=== PATIENT | male | born 1960 | race Caucasian/White ===

== ENCOUNTER → 2016-07-21 | Outpatient (CLI) | payer OTHER ==
[2016-07-21 10:53] LABS: BUN/CREATININE RATIO 21 (0-10)
== END ==
LOC: LAB 09:33
PROVIDERS: Internal Medicine Endocrinology, Diabetes & Metabolism
DX: E11.29 Type 2 diabetes mellitus with other diabetic kidney complication (principal); E78.00 Pure hypercholesterolemia, unspecified
CPT/HCPCS: 80053; 80061; 82043; 82570; 83036; 83735

== ENCOUNTER 2016-07-26 08:31 | Emergency (ER) | payer SELFPAY | END 2016-07-26 10:45 | disposition home or self-care (01) | LOC: ER1 08:31 | DX: M25.532 Pain in left wrist (principal); I10 Essential (primary) hypertension; W18.30XA Fall on same level, unspecified, initial encounter; Y93.72 Activity, wrestling; Y92.69 Other specified industrial and construction area as the place of occurrence of the external cause; Y99.0 Civilian activity done for income or pay; Z88.1 Allergy status to other antibiotic agents; Z79.899 Other long term (current) drug therapy | CPT/HCPCS: 29125; 73110; 99283 ==

== ENCOUNTER → 2020-08-25 | Outpatient (CLI) | payer OTHER | LOC: KOH-I 08-23 10:30 | DX: M25.512 Pain in left shoulder (principal); S42.145A Nondisplaced fracture of glenoid cavity of scapula, left shoulder, initial encounter for closed fracture | CPT/HCPCS: 73221 ==

== ENCOUNTER → 2021-03-27 | Outpatient (CLI) | payer OTHER | LOC: RAD 09:00 | DX: S46.912A Strain of unspecified muscle, fascia and tendon at shoulder and upper arm level, left arm, initial encounter (principal); W17.89XA Other fall from one level to another, initial encounter | CPT/HCPCS: 73040; 73222; A9577; Q9967 ==

== ENCOUNTER → 2021-04-03 | Outpatient (CLI) | payer BC | LOC: HEART 5 07:11 | DX: R94.31 Abnormal electrocardiogram [ECG] [EKG] (principal) | CPT/HCPCS: 78452; A9502 ==

== ENCOUNTER → 2021-08-22 | Outpatient (CLI) | payer OTHER ==
[~2021-08-22] MED LIST: ASPIRIN EC81 MG PO; ATORVASTATIN CA20 MG PO; BENICAR20 MG PO; BRILINTA 90 MG90 MG PO; HUMALOG100 UNIT/3 SQ; ISOSORBIDE MONO30 MG PO; LANTUS SOL100 UNIT/1 SQ; LIPITOR80 MG PO; METOPROLOL SUCC50 MG PO
== END ==
LOC: RAD 08:31
DX: M75.102 Unspecified rotator cuff tear or rupture of left shoulder, not specified as traumatic (principal); S43.402A Unspecified sprain of left shoulder joint, initial encounter; X58.XXXA Exposure to other specified factors, initial encounter
CPT/HCPCS: 73040; 73222; A9577; Q9967